=== PATIENT | female | born 1995 | race Caucasian/White ===

== ENCOUNTER 2017-04-08 19:49 | Emergency (ER) | payer MEDICAID ==
[2017-04-08] MEDS ORDERED: IBUPROFEN 600 MG TABLET PO ONE (20:15)
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
[2017-04-08] MEDS ORDERED: CYCLOBENZAPRINE HCL 10 MG TABLET PO ONE (22:45)
[2017-04-08 23:09] VITALS: BP 122/71
== END 2017-04-08 22:54 | disposition home or self-care (01) ==
LOC: ER 19:49
DX: S09.90XA Unspecified injury of head, initial encounter (principal); S16.1XXA Strain of muscle, fascia and tendon at neck level, initial encounter; S02.2XXA Fracture of nasal bones, initial encounter for closed fracture; S49.92XA Unspecified injury of left shoulder and upper arm, initial encounter; S69.92XA Unspecified injury of left wrist, hand and finger(s), initial encounter; Y04.0XXA Assault by unarmed brawl or fight, initial encounter; Y92.89 Other specified places as the place of occurrence of the external cause; F17.210 Nicotine dependence, cigarettes, uncomplicated
CPT/HCPCS: 99284; 73130; 73030; 70486; 72125; J3490 ×2

== ENCOUNTER 2017-09-10 17:39 | Emergency (ER) | payer MEDICAID ==
[2017-09-10] MEDS ORDERED: IPRATROPIUM/ALBUTEROL 0.5-2.5 MG/3 ML AMPUL NEB ONE (19:33)
[2017-09-10] MEDS ORDERED: ALBUTEROL SULFATE 0.083% NEB 2.5 MG/3 ML AMPUL NEB ONE ×2 (19:34)
--- NOTE | 2017-09-10 19:38 | ER Document Report ---
ED Medical Screen (RME) - General Chief Complaint: Breathing Difficulty Stated Complaint: COUGH/DIFFICULTY BREATHIG Time Seen by Provider: 09/10/17 19:33 Mode of Arrival: Ambulatory Information source: Patient Notes: Patient is a 22-year-old female with medical history of asthma, seizures, strokes and sleep apnea who presents today with multiple complaints. Patient reports that she is approximately 6 weeks and has been having low abdominal pain as well as a productive cough that is blood-tinged. Patient reports that she has been wheezing over the last few days, has not taken any albuterol as she states she is out. Patient denies any fever, denies any vaginal bleeding or abnormal discharge. Patient reports that she has had nausea and vomiting although that has been ongoing for the last few weeks with her . Patient reports that she is a . Exam: Mild tenderness to palpation across low abdomen. Bilateral expiratory wheezing. I have greeted and performed a rapid initial assessment of this patient. A comprehensive ED assessment and evaluation of the patient, analysis of test results and completion of the medical decision making process will be conducted by additional ED providers. Dictation of this chart was performed using voice recognition software; therefore, there may be some unintended grammatical errors. TRAVEL OUTSIDE OF THE [place] IN LAST 30 DAYS: No - Related Data Allergies/Adverse Reactions: No Known Allergies Allergy (Unverified 09/10/17 17:41) Past Medical History - Social History Chew tobacco use (# tins/day): No Frequency of alcohol use: None Drug Abuse: None Pulmonary Medical History: Reports: Hx Asthma Neurological Medical History: Reports: Hx Seizures Renal/ Medical History: Denies: Hx Peritoneal Dialysis Musculoskeltal Medical History: Reports Hx Musculoskeletal Trauma Traumatic Medical History: Reports: Hx Fractures - Clavicle tibia foot coccyx wrist and elbow Past Surgical History: Reports: Hx Section, Hx Oral Surgery Physical Exam - Vital signs Vitals: Temp Pulse Resp BP Pulse Ox 99.2 F 95 20 118/64 95 09/10/17 17:44 09/10/17 17:44 09/10/17 17:44 09/10/17 17:44 09/10/17 17:44 Course - Vital Signs Vital signs: Temp Pulse Resp BP Pulse Ox 99.2 F 95 20 118/64 95 09/10/17 17:44 09/10/17 17:44 09/10/17 17:44 09/10/17 17:44 09/10/17 17:44
[2017-09-10 20:42] LABS: ABSOLUTE BASOPHILS # (AUTO) 0.1 10^3/uL (0.0-0.2); ABSOLUTE EOSINOPHILS # (AUTO) 0.5 10^3/uL (0.0-0.6); ABSOLUTE MONOCYTES (AUTO) 1.2 10^3/uL (0.1-1.4); ABSOLUTE NEUT (AUTO) 5.4 10^3/uL (1.7-8.2); BASOPHILS % (AUTO) 0.9 % (0-2); HEMATOCRIT 33.8 % (36.0-47.0); HEMOGLOBIN 11.1 g/dL (12.0-15.5); LYMPHOCYTES % (AUTO) 29.7 % (13-45); MEAN CORPUSCULAR HGB CONC 32.7 g/dL (32.0-36.0); MONOCYTES % (AUTO) 11.8 % (3-13); PLATELET COUNT 282 10^3/uL (150-450); RED BLOOD COUNT 5.27 10^6/uL (3.72-5.28); RED CELL DISTRIBUTION WIDTH 15.5 % (11.5-14.0); SEGMENTED NEUTROPHILS % (AUTO) 52.6 % (42-78); TOTAL CELLS COUNTED % (AUTO) 100 %; WHITE BLOOD COUNT 10.2 10^3/uL (4.0-10.5)
[2017-09-10 20:47] LABS: APPEARANCE,URINE SLIGHTLY-CLOUDY; BILIRUBIN,URINE NEGATIVE (NEGATIVE); COLOR,URINE YELLOW; GLUCOSE, URINE NEGATIVE (NEGATIVE); KETONES,URINE NEGATIVE (NEGATIVE); LEUKOCYTE ESTERASE,URINE TRACE (NEGATIVE); NITRITE,URINE NEGATIVE (NEGATIVE); PROTEIN,URINE NEGATIVE (NEGATIVE); URINE SPECIFIC GRAVITY 1.009
[2017-09-10 21:00] LABS: ANISOCYTOSIS SLIGHT; HYPOCHROMASIA 1+; TOXIC GRANULATION SLIGHT
[2017-09-10 21:01] LABS: MEAN CORPUSCULAR VOLUME 64 fl (80-97); PLATELET COMMENT ADEQUATE; POIKILOCYTOSIS SLIGHT; TARGET CELLS SLIGHT
[2017-09-10 21:06] LABS: ALANINE AMINOTRANSFERASE 18 U/L (9-52); ALKALINE PHOSPHATASE 33 U/L (38-126); ANION GAP 13 (5-19); ASPARTATE AMINO TRANSFERASE 18 U/L (14-36); BILIRUBIN,DIRECT 0.2 mg/dL (0.0-0.4); BILIRUBIN,TOTAL 0.4 mg/dL (0.2-1.3); BLOOD UREA NITROGEN 7 mg/dL (7-20); CALCIUM 9.3 mg/dL (8.4-10.2); CARBON DIOXIDE 22 mmol/L (22-30); CHLORIDE 109 mmol/L (98-107); GLUCOSE 79 mg/dL (75-110); POTASSIUM 4.1 mmol/L (3.6-5.0); SODIUM 144.1 mmol/L (137-145); TOTAL PROTEIN 6.5 g/dL (6.3-8.2)
--- NOTE | 2017-09-10 23:19 | RADIOLOGY REPORT (SQ) ---
EXAM DESCRIPTION: XR CHEST 2 VIEWS COMPLETED DATE/TME: 09/10/2017 22:46 CLINICAL HISTORY: sob COMPARISON: None. FINDINGS: Frontal and lateral views of the chest. There is a 1.4 cm pulmonary nodule in the left lung base of indeterminate etiology. The cardiomediastinal silhouette has normal size and contour. No consolidation, pneumothorax, or pleural effusion. No displaced rib fractures identified. Upper abdominal soft tissues are unremarkable. IMPRESSION: 1. No acute pulmonary process identified. 2. There is a 1.4 cm indeterminate pulmonary nodule in the left lung base. Correlation with CT of the chest recommended for further characterization.
--- NOTE | 2017-09-10 23:56 | ER Document Report ---
ED General - General Mode of Arrival: Ambulatory Information source: Patient TRAVEL OUTSIDE OF THE [place] IN LAST 30 DAYS: No <ARCELIA MORROW - Last Filed: 09/11/17 00:12> <PRABHASAMUELPANDA - Last Filed: 09/11/17 03:17> - General Chief Complaint: Breathing Difficulty Stated Complaint: COUGH/DIFFICULTY BREATHIG Time Seen by Provider: 09/10/17 19:33 Notes: Patient is a 22 year old female, currently 6 weeks with asthma, sleep apnea, insomina and a history of strokes and seizures presents to the emergency department complaining of multiple symptoms including shortness of breath, a productive cough with blood tinged sputum, and sharp pain in left shoulder. Patient states her cough with sputum was onset 4 days ago and her shortness of breath was onset 3 days ago. She also complains of some lower abdominal pain which she relates to constipation. Patient states she was initially wheezing but after receiving 3 breathing treatments she feels a lot better and is no longer having shoulder pain. Patient denies any fevers, vaginal bleeding or discharge Patient has a history of severe asthma and states in the past she felt nebulizers really helped her symptoms. Patient is A3. (CRISTHIANARCELIA) - Related Data Allergies/Adverse Reactions: No Known Allergies Allergy (Unverified 09/10/17 17:41) Past Medical History - General Information source: Patient - Social History Smoking Status: Current Every Day Smoker - States she is quitting. 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8 Musculoskeletal Medical History: Reports Hx Musculoskeletal Trauma Traumatic Medical History: Reports: Hx Fractures - Clavicle tibia foot coccyx wrist and elbow Past Surgical History: Reports: Hx Section, Hx Oral Surgery <ARCELIA MORROW - Last Filed: 09/11/17 00:12> Review of Systems - Review of Systems Constitutional: No symptoms reported EENT: No symptoms reported Cardiovascular: No symptoms reported Respiratory: See HPI Gastrointestinal: See HPI, Abdominal pain Genitourinary: No symptoms reported Female Genitourinary: No symptoms reported Musculoskeletal: See HPI Skin: No symptoms reported Hematologic/Lymphatic: No symptoms reported Neurological/Psychological: No symptoms reported -: Yes All other systems reviewed and negative <ARCELIA MORROW - Last Filed: 09/11/17 00:12> Physical Exam <ARCELIA MORROW - Last Filed: 09/11/17 00:12> <PANDA NASCIMENTO - Last Filed: 09/11/17 03:17> - Vital signs Vitals: Temp Pulse Resp BP Pulse Ox 99.2 F 95 20 118/64 95 09/10/17 17:44 09/10/17 17:44 09/10/17 17:44 09/10/17 17:44 09/10/17 17:44 - Notes Notes: GENERAL: Alert, interacts well. No acute distress. HEAD: Normocephalic, atraumatic. EYES: Pupils equal, round, and reactive to light. Extraocular movements intact. ENT: Oral mucosa moist, tongue midline. NECK: Full range of motion. Supple. Trachea midline. LUNGS: Clear to auscultation bilaterally, no wheezes, rales, or rhonchi. No respiratory distress. Patient states she was wheezing earlier but her symptoms has since resolved. HEART: Regular rate and rhythm. No murmurs, gallops, or rubs. ABDOMEN: Soft, non-tender. Non-distended. Bowel sounds present in all 4 quadrants. EXTREMITIES: Moves all 4 extremities spontaneously. NEUROLOGICAL: Alert and oriented x3. Normal speech. PSYCH: Normal affect, normal mood. SKIN: Warm, dry, normal turgor. No rashes or lesions noted. (CRISTHIANARCELIA GAMBLE) Course - Laboratory Result Diagrams: 09/10/17 20:22 09/10/17 20:22 <CRISTHIAN,TAMLOLY - Last Filed: 09/11/17 00:12> - Laboratory Result Diagrams: 09/10/17 20:22 09/10/17 20:22 <PANDA NASCIMENTO - Last Filed: 09/11/17 03:17> - Re-evaluation Re-evalutation: 09/10/17 23:56 CBC shows mild anemia with hemoglobin, CMP grossly unremarkable, urinalysis shows trace leukocyte esterase, trace bacteria, no symptoms, there are 5 screen is squamous epithelial cells, this does not appear to be asymptomatic bacteriuria in the setting of it appears to be contamination. test is positive, chest x-ray shows a 1.3 cm nodule in the left lower lung, CT scan is recommended. I did discuss with Dr. Rodriguez, the reading radiologist when this needs to be followed up in the setting of , his recommendation is if the symptoms stay the same and do not worsen to repeat a chest x-ray in 3 months and then do a CT scan after delivery. Patient symptoms have all resolved after breathing treatments, there is no further wheezing, there is no further pain, she is only having flecks of blood and no massive hemoptysis. Breathing treatments would not take away the symptoms from a pulmonary embolism. Discussed with patient that we could perform a CT angiogram today but she agrees with holding off on any further imaging because her symptoms have improved with breathing treatments. Patient will be prescribed another nebulizer, given steroids and discharged home. She will have a chest x-ray repeated in 3 months and is recommended to have a CAT scan after delivery. Patient will return for increasing hemoptysis, worsening pain or any new or concerning symptoms. 09/11/17 03:17 (PANDA NASCIMENTO) - Vital Signs Vital signs: Temp Pulse Resp BP Pulse Ox 97.8 F 82 16 108/70 100 09/11/17 00:22 09/11/17 00:22 09/11/17 00:22 09/11/17 00:22 09/11/17 00:22 - Laboratory Laboratory results interpreted by me: 09/10/17 09/10/17 09/10/17 20:22 20:22 20:22 Hgb 11.1 L Hct 33.8 L MCV 64 L MCH 21.0 L RDW 15.5 H Chloride 109 H Alkaline Phosphatase 33 L Urine Urobilinogen 4.0 H Ur Leukocyte Esterase TRACE H Urine HCG, Qual POSITIVE H Discharge <ARCELIA MORROW - Last Filed: 09/11/17 00:12> <PANDA NASCIMENTO - Last Filed: 09/11/17 03:17> - Discharge Clinical Impression: Hemoptysis, First trimester Acute asthma exacerbation Qualifiers: Asthma severity: moderate Asthma persistence: persistent Qualified Code(s): J45.41 - Moderate persistent asthma with (acute) exacerbation Condition: Stable Disposition: HOME, SELF-CARE Additional Instructions: Your symptoms appear to be coming from an asthma flare today. I have prescribed another nebulizer and steroids. If your symptoms worsen or you develop increased blood in your sputum please return to the emergency department immediately. You do have a 1.3 cm nodule on the left lower side of your lungs. You will need to have a repeat chest x-ray in 3 months to make sure this does not enlarge and you will need to have a CT scan of your chest after delivery to look to see if this is an AVM (arteriovenous malformation). If your symptoms worsen you will need to have a CAT scan before then. [facility]-up with [facility] as planned. Prescriptions: Albuterol Sulfate [Albuterol Sulfate 2.5mg/3 mL] 2.5 mg IH Q4HP PRN #30 unit PRN Reason: Nebulizer [Nebulizer Machine] 1 each MC ASDIR PRN #1 kit PRN Reason: Prednisone 40 mg PO DAILY #10 tablet Scribe Attestation: 09/11/17 03:17 I personally performed the services described in the documentation, reviewed and edited the documentation which was dictated to the scribe in my presence, and it accurately records my words and actions. (PANDA NASCIMENTO) Scribe Documentation - Scribe Written by Berta:: Berta Miramontes, 09/11/2017 00:12 acting as scribe for :: Hector <ARCELIA MORROW - Last Filed: 09/11/17 00:12>
[2017-09-11 00:24] VITALS: BP 108/70
[2017-09-11 16:43] LABS: PATH REVIEW PATHOLOGIST REVIEWED
== END 2017-09-11 00:22 | disposition home or self-care (01) ==
LOC: ER 17:39
DX: O26.891 Other specified pregnancy related conditions, first trimester (principal); J45.41 Moderate persistent asthma with (acute) exacerbation; R04.2 Hemoptysis; O99.331 Smoking (tobacco) complicating pregnancy, first trimester; Z3A.01 Less than 8 weeks gestation of pregnancy
CPT/HCPCS: 94640 ×2; 99285; 36415; 85025; 81025; 80053; 81001; 71046; J7620

== ENCOUNTER 2018-04-14 15:26 | Outpatient (CLI) | payer MEDICAID ==
--- NOTE | 2018-04-14 16:56 | Non Stress Test Report ---
Non Stress Test Datetime Report Generated by CPN: 04/14/2018 16:55 DEMOGRAPHIC EGA NST: 37.3 INDICATION Indication for Study: Ordered by Provider Indication for Study: Decreased Movement; Other Indication for Study (NST) Other: LABOR CHECK MONITORING Monitor Explained: Monitor Explained; Test Explained; Patient Verbalized Understanding Monitor Explained: Monitor Explained; Test Explained; Patient Verbalized Understanding Time on Monitor: 04/14/2018 15:40 Time on Monitor: 04/14/2018 15:40 Time off Monitor: 04/14/2018 16:48 NST Duration: 68 NST INTERVENTIONS NST Interventions: PO Hydration; Reposition Patient NST Interventions: PO Hydration; Reposition Patient BABY A: [id number] BABY A Movement : Present Contraction Frequency : None FHR Baseline : 145 Accelerations : 15X15 Decelerations : None Variability : Moderate 6-25bpm NST Review: Does Not Meet Criteria for Reactive NST NST Review and Verified By : Cornelio Brown CNM NST Results: Reactive NST REPORT Report Trigger: Send Report
== END 2018-04-14 16:52 | disposition home or self-care (01) ==
LOC: LC 15:26
PROVIDERS: ATTEND Obstetrics & Gynecology
DX: O36.8130 Decreased fetal movements, third trimester, not applicable or unspecified (principal); Z3A.37 37 weeks gestation of pregnancy

== ENCOUNTER → 2018-04-18 | Outpatient (CLI) | payer MEDICAID ==
--- NOTE | 2018-04-18 11:42 | WOMENS IMAGING REPORT ---
EXAM DESCRIPTION: U/S BREAST UNILAT LIMITED COMPLETED DATE/TIME: 04/18/2018 7:41 am REASON FOR STUDY: N63.0 UNSPECIFIED LUMP IN UNSPECIFIED BREAST N63.0 UNSPECIFIED LUMP IN UNSPECIFIE D BREAST COMPARISON: None. TECHNIQUE: Real-time and static grayscale imaging performed of the left breast targeted to the area of palpable abnormality left breast 1 to 2 o'clock position. Patient is 40 weeks . Selected color Doppler images recorded. LIMITATIONS: None. FINDINGS: MASS: 2 x 1 x 0.5 cm hypoechoic solid nodule is present in the left far upper outer quadra nt 1 to 2 o'clock position. This has central hilar fat and represents an intramammary lymph node. G ood acoustic through transmission. Normal cortical thickness. OTHER: No other significant finding. IMPRESSION: Palpable abnormality left breast 1 to 2 o'clock position correlates with a 2 x 1 x 0.5 c m lymph node without worrisome features. Clinical follow-up recommended. BIRAD: 2 Benign findings. RECOMMENDATION: RECOMMENDED FOLLOW-UP: Follow-up as clinically indicated. COMMENT: The [employer] (A[employer]) has developed recommendations for screening MRI of the breasts in certain patient populations, to be used in conjunction with mammography. Breast MRI s urveillance may be appropriate for women with more than 20% lifetime risk of developing breast cancer as determined by genetic testing, significant family history of the disease, or history of mantle r adiation for Hodgkins Disease. ACR Practice Guidelines 2008. TECHNICAL DOCUMENTATION: JOB ID: [id number] [employer] All Rights Reserved Reading location - IP/workstation name: [email or web address]
== END ==
LOC: WI 07:00
PROVIDERS: ATTEND Obstetrics & Gynecology
DX: N63.0 Unspecified lump in unspecified breast (principal)
CPT/HCPCS: 76642

== ENCOUNTER 2018-04-20 01:42 | Outpatient (CLI) | payer MEDICAID ==
[2018-04-20 02:15] LABS: APPEARANCE,URINE CLEAR; BILIRUBIN,URINE NEGATIVE (NEGATIVE); COLOR,URINE STRAW; GLUCOSE, URINE NEGATIVE (NEGATIVE); KETONES,URINE NEGATIVE (NEGATIVE); LEUKOCYTE ESTERASE,URINE NEGATIVE (NEGATIVE); NITRITE,URINE NEGATIVE (NEGATIVE); PROTEIN,URINE NEGATIVE (NEGATIVE); URINE SPECIFIC GRAVITY 1.003; UROBILINOGEN,URINE NEGATIVE mg/dL (<2.0)
[2018-04-20 02:32] LABS: URINE AMPHETAMINES SCREEN NEGATIVE; URINE BARBITURATES SCREEN NEGATIVE; URINE BENZODIAZEPINES SCREEN NEGATIVE; URINE COCAINE SCREEN NEGATIVE; URINE MARIJUANA (THC) SCREEN NEGATIVE; URINE METHADONE SCREEN NEGATIVE; URINE PHENCYCLIDINE SCREEN NEGATIVE
[2018-04-20] MEDS ORDERED: HYDROXYZINE PAMOATE 50 MG CAPSULE ONE (03:14)
[2018-04-20] MEDS: HYDROXYZINE PAMOATE 50 MG CAPSULE PO ONE ×2 (03:16→03:19)
--- NOTE | 2018-04-20 05:00 | Non Stress Test Report ---
Non Stress Test Datetime Report Generated by CPN: 04/20/2018 04:59 DEMOGRAPHIC EGA NST: 38.2 INDICATION Indication for Study: Ordered by Provider; Other Indication for Study (NST) Other: labor check MONITORING Monitor Explained: Monitor Explained; Test Explained; Patient Verbalized Understanding Time on Monitor: 04/20/2018 02:00 NST INTERVENTIONS NST Interventions: IV Fluids Physician Notified NST: [place] BABY A: [id number] BABY A Movement : Present Contraction Frequency : 5-11 FHR Baseline : 125 Accelerations : 15X15 Decelerations : None Variability : Moderate 6-25bpm NST Review: Meets Criteria for Reactive NST NST Review and Verified By : B. Ring RN NST Results: Reactive NST REPORT Report Trigger: Send Report
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
--- NOTE | 2018-04-23 14:36 | Delivery Summary ---
Del Sum A-C Datetime Report Generated by CPN: 04/23/2018 14:36 DELIVERY PERSONNEL DELIVERY PERSONNEL: [id number] Delivery Doctor:: Virginia Torres MD Anesthesiologist:: MD Misha LOAN DOCUMENTS CLOSER:: Saul Daniel CRNA Labor and Delivery Nurse:: Bertha Wood RNpress loader Nurse:: Erin Bhakta RN Salad Chef:: Bertha Wood RN Committee Member:: Dr. Maikol Meier Nursery Nurse:: Coty aBrnett RN Nursery Nurse:: CHAN Matthews Helper Shear Operator/ANODE CREW SUPERVISOR: ST Ramirez Helper Shear Operator/ANODE CREW SUPERVISOR: Yeni Huerta JUNIOR PHP DEVELOPER MATERNAL INFORMATION Delivery Anesthesia: Spinal Medications After Delivery: Pitocin Drip 20 Units/1000ml NSS; Cytotec 1000mcg Per Rectum/Vagina Meds After Delivery Comment: Pitocin 20 Units Maternal Complications: None LABOR SUMMARY EDC: 05/02/2018 00:00 No. Babies in Womb: 1 Attempted: No Labor Anesthesia: None LABOR INFORMATION Reason for Induction: Not Applicable Onset of Labor: 04/23/2018 09:56 Group B Beta Strep: NEGATIVE MEMBRANES Membranes Rupture Method: Artificial Rupture of Membranes: 04/23/2018 11:19 Length of Rupture (hr): 0.02 Amniotic Fluid Color: Clear Amniotic Fluid Amount: Copious STAGES OF LABOR Stage 3 hr: 0 Stage 3 min: 1 Total Time in Labor hr: 1 Total Time in Labor min: 25 VAGINAL DELIVERY Episiotomy: None Laceration #1: None Laceration Extension #1: N/A Laceration Repair: Not Applicable Sponge Count Correct: N/A CSECTION DELIVERY Primary Indication: Repeat Elective CSection Urgency: Non-Scheduled CSection Incidence: Repeat Labor: Labor Elective: Elective CSection Incision: Lower Uterine Transverse BABY A INFORMATION Delivery Date/Time: 04/23/2018 11:20 Method of Delivery: Born in Route : No : N/A Forceps: N/A Vacuum Extraction: N/A Shoulder Dystocia : No PRESENTATION/POSITION BABY A Presentation: Cephalic Cephalic Presentation: Vertex Breech Presentation: N/A PLACENTA INFORMATION BABY A Placenta Delivery Time : 04/23/2018 11:21 Placenta Method of Delivery: Manual Removal Placenta Status: Delivered SCORES BABY A Heart Rate 1 min: >100 bpm Resp Effort 1 min: Good Cry Reflex Irritability 1 min: Cough or Sneeze or Pulls Away Muscle Tone 1 min: Active Motion Color 1 min: Body Murphy, Extremities Blue Resuscitation Effort 1 min: N/A SCORE 1 MIN: 9 Heart Rate 5 min: >100 bpm Resp Effort 5 min: Good Cry Reflex Irritability 5 min: Cough or Sneeze or Pulls Away Muscle Tone 5 min: Active Motion Color 5 min: Body [place], Extremities Blue Resuscitation Effort 5 min: N/A SCORE 5 MIN: 9 INFORMATION BABY A Gestational Age at Delivery: 38.5 Gestational Status: Early Term- 37- 38.6 Weeks Infant Outcome : Liveborn Infant Condition : Stable Sex: Male IDENTIFICATION BABY A Verification Date/Time: 04/23/2018 11:25 ID Band Number: [id number] Mother's Name Verified: Yes Infant RN Verifying Infant: , RN Additional Verifying Personnel: CHAN Lozoya WEIGHT/LENGTH BABY A Birthweight (gm): 3155 Weight (lb): 6 Infant Weight (oz): 15 Length (in): 20.00 Infant Length (cm): 50.80 CORD INFORMATION BABY A No. Cord Vessels: 3 Nuchal Cord : N/A Cord Blood Taken: Yes-For Storage (Mom's Blood type +) ASSESSMENT BABY A Skin to Skin: Yes
== END 2018-04-20 04:47 | disposition home or self-care (01) ==
LOC: LC 01:42
PROVIDERS: ATTEND Obstetrics & Gynecology
PROC: 4A1HXCZ Monitoring of Products of Conception, Cardiac Rate, External Approach (ICD-10-PCS; principal; 2018-04-20)
DX: O47.1 False labor at or after 37 completed weeks of gestation (principal); Z3A.38 38 weeks gestation of pregnancy
CPT/HCPCS: 59025; 80307; 81005; 84112

== ENCOUNTER 2018-04-23 09:48 | Inpatient (IN) | payer MEDICAID ==
[2018-04-23] MEDS ORDERED: RINGERS SOLUTION,LACTATED 1,000 ML IV PRN (09:54)
[2018-04-23] MEDS ORDERED: RINGERS SOLUTION,LACTATED 1,000 ML IV ONE (09:54)
[2018-04-23] MEDS ORDERED: DEXTROSE 40% GEL 15 GM TUBE PO PRN ×2 (09:54)
[2018-04-23] MEDS ORDERED: DEXTROSE 50%-WATER 25 GM/50 ML DISP.SYRIN IV PRN ×2 (09:54)
[2018-04-23] MEDS ORDERED: GLUCAGON,HUMAN RECOMB 1 MG INJ SUBCUT PRN (09:54)
[2018-04-23] MEDS ORDERED: CEFAZOLIN 2 GM/D5W RTU 2 GM/50 ML RTUPB IV ONE (09:55)
[2018-04-23] MEDS ORDERED: CITRIC ACID/SODIUM CITRATE ORAL SOLN 15 ML UDCUP ONE (09:55)
[2018-04-23 10:18] LABS: APPEARANCE,URINE CLEAR; BILIRUBIN,URINE NEGATIVE (NEGATIVE); COLOR,URINE STRAW; GLUCOSE, URINE NEGATIVE (NEGATIVE); KETONES,URINE NEGATIVE (NEGATIVE); LEUKOCYTE ESTERASE,URINE NEGATIVE (NEGATIVE); NITRITE,URINE NEGATIVE (NEGATIVE); PROTEIN,URINE NEGATIVE (NEGATIVE); URINE SPECIFIC GRAVITY 1.003; UROBILINOGEN,URINE NEGATIVE mg/dL (<2.0)
[2018-04-23 10:35] LABS: ABSOLUTE BASOPHILS # (AUTO) 0.1 10^3/uL (0.0-0.2); ABSOLUTE EOSINOPHILS # (AUTO) 0.3 10^3/uL (0.0-0.6); ABSOLUTE LYMPHOCYTES (AUTO) 3.3 10^3/uL (0.5-4.7); ABSOLUTE MONOCYTES (AUTO) 2.1 10^3/uL (0.1-1.4); ABSOLUTE NEUT (AUTO) 9.8 10^3/uL (1.7-8.2); BASOPHILS % (AUTO) 0.5 % (0-2); EOSINOPHILS % (AUTO) 2.1 % (0-6); HEMATOCRIT 35.9 % (36.0-47.0); HEMOGLOBIN 11.9 g/dL (12.0-15.5); LYMPHOCYTES % (AUTO) 21.2 % (13-45); MEAN CORPUSCULAR HEMOGLOBIN 22.8 pg (27.0-33.4); MEAN CORPUSCULAR HGB CONC 33.1 g/dL (32.0-36.0); MEAN CORPUSCULAR VOLUME 69 fl (80-97); MONOCYTES % (AUTO) 13.4 % (3-13); PLATELET COUNT 270 10^3/uL (150-450); RED BLOOD COUNT 5.21 10^6/uL (3.72-5.28); RED CELL DISTRIBUTION WIDTH 15.5 % (11.5-14.0); SEGMENTED NEUTROPHILS % (AUTO) 62.8 % (42-78); TOTAL CELLS COUNTED % (AUTO) 100 %; WHITE BLOOD COUNT 15.6 10^3/uL (4.0-10.5)
[2018-04-23] MEDS ORDERED: ONDANSETRON HCL INJ/PF 4 MG/2 ML SDV ONE (10:52)
[2018-04-23] MEDS ORDERED: MORPHINE SULFATE 10 MG/ML INJ ONE (10:53)
[2018-04-23] MEDS ORDERED: FENTANYL CITRATE INJ/PF 100 MCG/2 ML AMPUL ONE ×2 (10:53→12:24)
[2018-04-23] MEDS ORDERED: MIDAZOLAM 2 MG/2 ML INJ ONE (10:53)
[2018-04-23] MEDS ORDERED: OXYTOCIN 10 UNIT/ML VIAL ONE (10:53)
[2018-04-23] MEDS ORDERED: MISOPROSTOL 0.2 MG TABLET ONE (11:27)
[2018-04-23] MEDS ORDERED: ACETAMINOPHEN 325 MG TABLET PO PRN (12:05)
[2018-04-23] MEDS ORDERED: HYDROMORPHONE HCL INJ/PF 2 MG/ML AMPULE IV PRN (12:05)
[2018-04-23] MEDS ORDERED: SIMETHICONE 80 MG TAB.CHEW PO PRN (12:05)
[2018-04-23] MEDS ORDERED: MEASLES,MUMPS&RUBELLA VACC/PF 0.5 ML VIAL SUBCUT PRN (12:05)
[2018-04-23] MEDS ORDERED: PROMETHAZINE HCL INJ 25 MG/1 ML VIAL IV PRN (12:05)
[2018-04-23] MEDS ORDERED: OXYCODONE-ACETAMINOPHEN 5-325 MG TABLET PO PRN (12:05)
[2018-04-23] MEDS ORDERED: DIPH/PERTUSS(ACELL)/TETANUS VAC/PF 0.5 ML SYR (>=10YO) IM PRN (12:05)
[2018-04-23] MEDS ORDERED: ACETAMINOPHEN 1,000 MG/100 ML RTUPB IV PRN (12:05)
[2018-04-23] MEDS ORDERED: OXYTOCIN/NORMAL SALINE 20 UNIT/1,000 ML RTUINJ IV PRN (12:05)
[2018-04-23] MEDS ORDERED: ACETAMINOPHEN 1,000 MG/100 ML RTUPB IV ONE (12:10)
--- NOTE | 2018-04-23 12:12 | Brief Operative Note ---
BRIEF OPERATIVE REPORT DATE OF SURGERY: 04/23/18 TIME OF SURGERY: 11:20 PREOPERATIVE DIAGNOSIS: , 38+5ega, Polyhydramnios, H/o section times two, Rubella NI POSTOPERATIVE DIAGNOSIS: FAWAD SURGEON: AMANDA HOGAN FINDINGS: VMI delivered at 1120, Apgars 9/9, weight 6#15oz, normal ovaries and tubes. Very thin lower uterine segment. IVF 1400ml, UOP 100ml COMPLICATIONS: None ESTIMATED BLOOD LOSS: 402ml TISSUE REMOVED OR ALTERED: placenta and cord - not sent to pathology TECHNICAL PROCEDURE: Repeat section with Scar revision
[2018-04-23 12:36] LABS: CHLAM PCR NOT DETECTED (NOT DETECT); GON PCR NOT DETECTED (NOT DETECT)
--- NOTE | 2018-04-23 13:09 | Operative Report ---
Operative Report DATE OF SURGERY: 04/23/18 PREOPERATIVE DIAGNOSIS: , 38+5ega, Polyhydramnios, H/o section times two, Rubella NI POSTOPERATIVE DIAGNOSIS: FAWAD OPERATION: Repeat section with Scar revision SURGEON: AMANDA HOGAN ANESTHESIA: Spinal TISSUE REMOVED OR ALTERED: placenta and cord - not sent to pathology COMPLICATIONS: None ESTIMATED BLOOD LOSS: 402ml INTRAOPERATIVE FINDINGS: VMI delivered at 1120, Apgars 9/9, weight 6#15oz, normal ovaries and tubes. Very thin lower uterine segment. IVF 1400ml, UOP 100ml PROCEDURE: Anesthesia provider: [Misha BUSH] Urine output: [100ml] IV fluids: [1400ml] Indications: [23yo at 38+5ega presents with regular uterine contractions and now cervical dilation /-2 in active labor. She has had 2 prior sections and is consented for repeat. The risks, benefits, alternatives were reviewed and she desires to proceed with planned procedure. She was initially supposed to have tubal sterilization but now declines and would like to have IUD for contraception. ] Procedure: The patient was taken to the operating room where spinal anesthesia was obtained and found to be adequate. She was then prepped and draped in the normal sterile fashion and placed in the dorsal supine position with a leftward tilt. A Pfannenstiel skin incision was then made and carried through to the underlying layers of the fascia with the scalpel. The fascia was incised in the midline and the incision extended laterally with the Valdivia scissors. The superior aspect of the fascial incision was then grasped with Rico clamps elevated and the underlying rectus muscles dissected off [bluntly]. Attention was then turned to the inferior aspect of the fascial incision which in a similar fashion was grasped, tented up with Rico clamps, and the rectus muscles dissected off [bluntly]. The rectus muscles were then in the midline and the peritoneum at the amount identified and entered [bluntly]. The peritoneal incision was then extended superiorly and inferiorly with good visualization of the bladder. The bladder blade was inserted and the vesicouterine peritoneum identified grasped with Vincentian pickups and entered sharply with the Metzenbaum scissors. This incision was then extended laterally with the Metzenbaum scissors and a bladder flap created digitally. The bladder blade was then reinserted and the lower uterine segment incised in a transverse fashion with the scalpel. The lower uterine segment at the site of prior transverse incisions was noted to be extraordinarily thin. The uterine incision was then extended bluntly. The bladder blade was removed and the 's head was delivered from cephalic presentation atraumatically. The nose and mouth were suctioned and the cord doubly clamped and cut. And the infant was handed off to waiting pediatricians. The placenta was then delivered spontaneously and the uterus exteriorized and cleared of all clots and debris. The uterine incision was then repaired with 1- 0 Vicryl in a running locked fashion. A second layer of the same suture was used to obtain hemostasis via imbrication of the initial layer. The bladder flap was then repaired with 3-0 chromic in a running fashion. The uterus was returned to the patient's abdomen and Interceed was placed overlying the uterine incision to prevent adhesions. The gutters were cleared of all clots and debris. All operative sites were noted to be hemostatic. The fascia was reapproximated with 0 Vicryl in a running fashion from each lateral edge to the midline. The skin was closed with 3-0 Monocryl in a running subcuticular fashion with overlying Dermabond for additional dressing as well as wound closure. The patient tolerated the procedure well. Sponge lap needle and instrument counts are correct times 2. 2 g of Ancef were given prior to skin incision. The patient was taken to the recovery area awake and in stable condition.
[2018-04-23] MEDS ORDERED: KETOROLAC TROMETHAMINE INJ/PF 30 MG/1 ML SDV ONE (13:34)
[2018-04-23] MEDS: KETOROLAC TROMETHAMINE INJ/PF 30 MG/1 ML SDV IV SCH ×2 (13:37→23:53)
[2018-04-23] MEDS ORDERED: CEFAZOLIN 1 GM/D5W RTU 1 GM/50 ML RTUPB IV SCH (17:55)
[2018-04-23] MEDS: DOCUSATE SODIUM 100 MG CAPSULE PO SCH (18:22)
[2018-04-23] MEDS ORDERED: FAMOTIDINE 20 MG TABLET PO ONE (22:45)
[2018-04-24] MEDS: IBUPROFEN 800 MG TABLET PO SCH ×4 (05:19→23:52)
[2018-04-24] MEDS: KETOROLAC TROMETHAMINE INJ/PF 30 MG/1 ML SDV IV SCH (06:26)
[2018-04-24 07:03] LABS: HEMATOCRIT 32.7 % (36.0-47.0); HEMOGLOBIN 10.8 g/dL (12.0-15.5); MEAN CORPUSCULAR VOLUME 70 fl (80-97); PLATELET COUNT 276 10^3/uL (150-450); RED CELL DISTRIBUTION WIDTH 15.3 % (11.5-14.0); WHITE BLOOD COUNT 19.5 10^3/uL (4.0-10.5)
[2018-04-24] MEDS: OXYCODONE-ACETAMINOPHEN 5-325 MG TABLET PO PRN ×2 (08:24→14:52)
[2018-04-24] MEDS: DOCUSATE SODIUM 100 MG CAPSULE PO SCH ×2 (10:01→18:13)
[2018-04-24] MEDS: FAMOTIDINE 20 MG TABLET PO SCH ×2 (10:01→21:55)
[2018-04-24] MEDS: PRENATAL VITAMIN W DHA CAPSULE PO SCH (10:01)
--- NOTE | 2018-04-24 11:43 | PDOC PROGRESS REPORT ---
Subjective-OB Progress Note for:: 04/24/18 Subjective: Pt doing well, no concerns. Pain well controlled, wants to go home today. Bleeding stable, voiding without difficulty, + flatus and regular diet. Physical Exam (OB) Vital Signs: Temp Pulse Resp BP Pulse Ox 98.4 F 81 18 119/66 93 04/24/18 05:10 04/24/18 05:10 04/24/18 05:10 04/24/18 05:10 04/24/18 05:10 Intake & Output 04/23/18 04/24/18 04/25/18 06:59 06:59 06:59 Intake Total 1450 Output Total 2800 Balance -1350 Weight 64.3 kg - Dressing Removed: Yes Incision: Open, Well Approximated Closure Type: Surgical Glue - Lochia Lochia Amount: Scant < 10 ml Lochia Color: Rubra/Red - Abdomen Description: Soft, Flat Hernia Present: No Fundal Description: Firm Fundal Height: u/u - u/2 Objective-Diagnostic Laboratory: 04/24/18 06:37 04/24/18 06:37 WBC 19.5 H RBC 4.70 Hgb 10.8 L Hct 32.7 L MCV 70 L MCH 23.0 L MCHC 33.0 RDW 15.3 H Plt Count 276 Assessment and Plan(PN) - Assessment and Plan (1) History of section, low transverse Is this a current diagnosis for this admission?: Yes - Time Spent with Patient Time with patient: Less than 15 minutes Medications reviewed and adjusted accordingly: Yes - Disposition Anticipated Discharge: Home Within: within 24 hours
[2018-04-25] MEDS: IBUPROFEN 800 MG TABLET PO SCH (05:16)
[2018-04-25 07:29] LABS: ABSOLUTE BASOPHILS # (AUTO) 0.1 10^3/uL (0.0-0.2); ABSOLUTE EOSINOPHILS # (AUTO) 0.5 10^3/uL (0.0-0.6); ABSOLUTE LYMPHOCYTES (AUTO) 3.8 10^3/uL (0.5-4.7); ABSOLUTE MONOCYTES (AUTO) 1.9 10^3/uL (0.1-1.4); ABSOLUTE NEUT (AUTO) 9.5 10^3/uL (1.7-8.2); BASOPHILS % (AUTO) 0.8 % (0-2); EOSINOPHILS % (AUTO) 2.9 % (0-6); HEMATOCRIT 31.1 % (36.0-47.0); HEMOGLOBIN 10.3 g/dL (12.0-15.5); LYMPHOCYTES % (AUTO) 24.2 % (13-45); MEAN CORPUSCULAR HEMOGLOBIN 23.6 pg (27.0-33.4); MEAN CORPUSCULAR HGB CONC 33.1 g/dL (32.0-36.0); MEAN CORPUSCULAR VOLUME 72 fl (80-97); MONOCYTES % (AUTO) 11.9 % (3-13); PLATELET COUNT 273 10^3/uL (150-450); RED BLOOD COUNT 4.35 10^6/uL (3.72-5.28); RED CELL DISTRIBUTION WIDTH 15.3 % (11.5-14.0); SEGMENTED NEUTROPHILS % (AUTO) 60.2 % (42-78); TOTAL CELLS COUNTED % (AUTO) 100 %; WHITE BLOOD COUNT 15.8 10^3/uL (4.0-10.5)
--- NOTE | 2018-04-25 08:09 | Delivery Summary ---
Del Sum A-C Datetime Report Generated by CPN: 04/25/2018 08:09 DELIVERY PERSONNEL DELIVERY PERSONNEL: [id number] Delivery Doctor:: Virginia Torres MD Delivery Doctor:: Virginia Torres MD Anesthesiologist:: MD Misha PAN SHAKER:: Saul Daniel CRNA PAN SHAKER:: Saul Daniel CRNA Labor and Delivery Nurse:: Bertha Wood RNwind site manager Nurse:: Erin Bhakta RN Personal Computer Network Engineer:: Bertha Wood RN Customer Project Manager:: Dr. Maikol Meier Nursery Nurse:: Coty Barnett RN Nursery Nurse:: CHAN Matthews Oil And Gas Exploration Technician/CHEF SAUCIER: [facility] Oil And Gas Exploration Technician/CHEF SAUCIER: [facility] Oil And Gas Exploration Technician/CHEF SAUCIER: Yeni Huerta CST Oil And Gas Exploration Technician/CHEF SAUCIER: Yeni Huerta CST MATERNAL INFORMATION Delivery Anesthesia: Spinal Medications After Delivery: Pitocin Drip 20 Units/1000ml NSS; Cytotec 1000mcg Per Rectum/Vagina Meds After Delivery Comment: Pitocin 20 Units Maternal Complications: None LABOR SUMMARY EDC: 05/02/2018 00:00 No. Babies in Womb: 1 Attempted: No Labor Anesthesia: None LABOR INFORMATION Reason for Induction: Not Applicable Onset of Labor: 04/23/2018 09:56 Group B Beta Strep: NEGATIVE MEMBRANES Membranes Rupture Method: Artificial Rupture of Membranes: 04/23/2018 11:19 Length of Rupture (hr): 0.02 Amniotic Fluid Color: Clear Amniotic Fluid Amount: Copious STAGES OF LABOR Stage 3 hr: 0 Stage 3 min: 1 Total Time in Labor hr: 1 Total Time in Labor min: 25 VAGINAL DELIVERY Episiotomy: None Laceration #1: None Laceration Extension #1: N/A Laceration Repair: Not Applicable Sponge Count Correct: N/A CSECTION DELIVERY Primary Indication: Repeat Elective CSection Urgency: Non-Scheduled CSection Incidence: Repeat Labor: Labor Elective: Elective CSection Incision: Lower Uterine Transverse BABY A INFORMATION Delivery Date/Time: 04/23/2018 11:20 Method of Delivery: Born in Route : No : N/A Forceps: N/A Vacuum Extraction: N/A Shoulder Dystocia : No PRESENTATION/POSITION BABY A Presentation: Cephalic Cephalic Presentation: Vertex Breech Presentation: N/A PLACENTA INFORMATION BABY A Placenta Delivery Time : 04/23/2018 11:21 Placenta Method of Delivery: Manual Removal Placenta Status: Delivered SCORES BABY A Heart Rate 1 min: >100 bpm Resp Effort 1 min: Good Cry Reflex Irritability 1 min: Cough or Sneeze or Pulls Away Muscle Tone 1 min: Active Motion Color 1 min: Body [place], Extremities Blue Resuscitation Effort 1 min: N/A SCORE 1 MIN: 9 Heart Rate 5 min: >100 bpm Resp Effort 5 min: Good Cry Reflex Irritability 5 min: Cough or Sneeze or Pulls Away Muscle Tone 5 min: Active Motion Color 5 min: Body [place], Extremities Blue Resuscitation Effort 5 min: N/A SCORE 5 MIN: 9 INFORMATION BABY A Gestational Age at Delivery: 38.5 Gestational Status: Early Term- 37- 38.6 Weeks Outcome : Liveborn Condition : Stable Sex: Male IDENTIFICATION BABY A Infant Verification Date/Time: 04/23/2018 11:25 ID Band Number: [id number] Mother's Name Verified: Yes RN Verifying : J., RN Additional Verifying Personnel: BBasiaNye, RN WEIGHT/LENGTH BABY A Birthweight (gm): 3155 Infant Weight (lb): 6 Weight (oz): 15 Infant Length (in): 20.00 Length (cm): 50.80 CORD INFORMATION BABY A No. Cord Vessels: 3 Nuchal Cord : N/A Cord Blood Taken: Yes-For Storage (Mom's Blood type +) ASSESSMENT BABY A Skin to Skin: Yes
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
[2018-04-25] MEDS: DOCUSATE SODIUM 100 MG CAPSULE PO SCH (09:15)
[2018-04-25] MEDS: FAMOTIDINE 20 MG TABLET PO SCH (09:15)
[2018-04-25] MEDS: PRENATAL VITAMIN W DHA CAPSULE PO SCH (09:15)
--- NOTE | 2018-04-25 10:27 | PDOC PROGRESS REPORT ---
Subjective-OB Progress Note for:: 04/25/18 Subjective: doing well, no c/o, ready to go home Physical Exam (OB) Vital Signs: Temp Pulse Resp BP Pulse Ox 98.6 F 69 16 107/60 93 04/25/18 07:45 04/25/18 07:45 04/25/18 07:45 04/25/18 07:45 04/25/18 07:45 Intake & Output 04/24/18 04/25/18 04/26/18 06:59 06:59 06:59 Intake Total 1450 Output Total 2800 Balance -1350 Weight 64.3 kg - PIH/Pre-Eclampsia Clonus: Negative Headache: Absent Epigastric Pain: No Visual Changes: No - Dressing Removed: Yes Incision: Open, Well Approximated Closure Type: Surgical Glue - Bilateral Tubal Ligation Dressing Removed: No - Lochia Lochia Amount: Scant < 10 ml Lochia Color: Rubra/Red - Abdomen Description: Soft, Flat Hernia Present: No Fundal Description: Firm Fundal Height: u/u - u/2 Objective-Diagnostic Laboratory: 04/25/18 06:33 04/25/18 06:33 WBC 15.8 H RBC 4.35 Hgb 10.3 L Hct 31.1 L MCV 72 L MCH 23.6 L MCHC 33.1 RDW 15.3 H Plt Count 273 Seg Neutrophils % 60.2 Lymphocytes % 24.2 Monocytes % 11.9 Eosinophils % 2.9 Basophils % 0.8 Absolute Neutrophils 9.5 H Absolute Lymphocytes 3.8 Absolute Monocytes 1.9 H Absolute Eosinophils 0.5 Absolute Basophils 0.1 Assessment and Plan(PN) - Assessment and Plan (1) History of section, low transverse Is this a current diagnosis for this admission?: Yes - Time Spent with Patient Time with patient: Less than 15 minutes Medications reviewed and adjusted accordingly: Yes - Disposition Anticipated Discharge: Home Within: within 24 hours
--- NOTE | 2018-04-25 10:30 | PDOC DISCHARGE SUMMARY ---
Final Diagnosis Discharge Date: 04/25/18 - Final Diagnosis (1) History of section, low transverse Is this a current diagnosis for this admission?: Yes Discharge Data - Discharge Medication Prescriptions: Oxycodone HCl/Acetaminophen [Percocet 5-325 mg Tablet] 1 tab PO Q4HP PRN #20 tablet PRN Reason: Ibuprofen [Motrin 800 mg Tablet] 800 mg PO Q6 #60 tablet Home Medications: Albuterol Sulfate [Albuterol Sulfate 2.5mg/3 mL] 2.5 mg IH Q4HP PRN #30 unit 09/11/17 Vit No.130/Iron/Folic [ Tablet] 1 each PO DAILY 04/14/18 Ibuprofen [Motrin 800 mg Tablet] 800 mg PO Q6 #60 tablet 04/25/18 Oxycodone HCl/Acetaminophen [Percocet 5-325 mg Tablet] 1 tab PO Q4HP PRN #20 tablet 04/25/18 Gestational Age: 38.5 Reason(s) for Admission: Ceasarean Section-Repeat Procedures: NST, Ultrasound Intrapartum Procedure(s): : Low Cervical, Transverse - Data Baby 1 Male Home with Mother: Yes Complications: No - Diagnosis Test Laboratory: Temp Pulse Resp BP Pulse Ox 98.6 F 69 16 107/60 93 04/25/18 07:45 04/25/18 07:45 04/25/18 07:45 04/25/18 07:45 04/25/18 07:45 04/23/18 04/24/18 04/25/18 10:11 06:37 06:33 RBC 5.21 4.70 4.35 Hgb 11.9 L 10.8 L 10.3 L Hct 35.9 L 32.7 L 31.1 L - Discharge information/Instructions Discharge Activity: Activity As Tolerated, No Lifting Over 10 Pounds, No Lifting/Push/Pulling, Pelvic Rest Discharge Diet: As Tolerated, Regular Disposition: HOME, SELF-CARE Follow up with: [facility] in: 1, Weeks
[2018-04-25 11:28] VITALS: BP 119/77
== END 2018-04-25 12:10 | disposition home or self-care (01) | DRG 788 ==
LOC: LR 09:48 → 2N 14:00
PROVIDERS: ADMIT Student in an Organized Health Care Education/Training Program; ATTEND Student in an Organized Health Care Education/Training Program
PROC: 10D00Z1 Extraction of Products of Conception, Low, Open Approach (ICD-10-PCS; principal; 2018-04-23)
PROC: 4A1HXCZ Monitoring of Products of Conception, Cardiac Rate, External Approach (ICD-10-PCS; 2018-04-23)
DX: O34.211 Maternal care for low transverse scar from previous cesarean delivery (principal); O40.3XX0 Polyhydramnios, third trimester, not applicable or unspecified; Z3A.38 38 weeks gestation of pregnancy; Z37.0 Single live birth; Z87.891 Personal history of nicotine dependence; Z86.19 Personal history of other infectious and parasitic diseases; Z62.810 Personal history of physical and sexual abuse in childhood; O99.89 Other specified diseases and conditions complicating pregnancy, childbirth and the puerperium; R91.1 Solitary pulmonary nodule
CPT/HCPCS: 1961; 36415; 81001; 85025; 85027; 86592; 86850; 86900; 86901; 87491; 87591; 94799; C1765; J0131; J0690; J1170; J1885; J2250; J2270; J2405; J2590; J3010; J3490

== ENCOUNTER 2018-09-01 17:51 | Emergency (ER) | payer OTHER, MEDICAID ==
[2018-09-01] MEDS ORDERED: HYDROCODONE/ACETAMINOPHEN 5-325 MG TABLET PO ONE (20:30)
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
[2018-09-01] MEDS ORDERED: HYDROCODONE/ACETAMINOPHEN 5-325 MG (6 TAB/ER DISP) PO PRN (23:53)
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
[2018-09-02 00:19] VITALS: BP 124/76
== END 2018-09-02 00:17 | disposition home or self-care (01) ==
LOC: ER 17:51
DX: S16.1XXA Strain of muscle, fascia and tendon at neck level, initial encounter (principal); S40.012A Contusion of left shoulder, initial encounter; S50.02XA Contusion of left elbow, initial encounter; S90.02XA Contusion of left ankle, initial encounter; R55 Syncope and collapse; V89.2XXA Person injured in unspecified motor-vehicle accident, traffic, initial encounter; F17.200 Nicotine dependence, unspecified, uncomplicated
CPT/HCPCS: 70450; 72070; 72110; 72125; 99284